=== PATIENT | female | born 1950 | race Caucasian/White ===

== ENCOUNTER 2016-06-09 00:16 | Emergency (ER) ==
[2016-06-09] MEDS ORDERED: TRANDATE IVP STA (00:26)
[2016-06-09] MEDS ORDERED: CATAPRES PO STA (00:26)
[2016-06-09 00:29] VITALS: BP 222/120; TEMP 97.6; BMI 27.3
[2016-06-09] MEDS ORDERED: NORVASC PO STA (00:30)
[2016-06-09 00:48] LABS: BASOPHILS # (AUTO) 0.1 K/uL (0-0.2); BASOPHILS % (AUTO) 0.8 % (0.0-3.0); EOSINOPHILS # (AUTO) 0.2 K/ul (0.0-0.7); EOSINOPHILS % (AUTO) 2.4 % (0.0-7.0); HEMATOCRIT 39.5 % (37.0-47.0); HEMOGLOBIN 12.6 g/dl (12.0-16.0); IMMATURE GRANULOCYTE % (AUTO) 0.3 % (0.0-5.0); LYMPHOCYTES # (AUTO) 3.1 K/uL (0.60-3.4); LYMPHOCYTES % (AUTO) 39.1 (10.0-50.0); MEAN CORPUSCULAR HEMOGLOBIN 25.8 pg (27.0-31.0); MEAN CORPUSCULAR HGB CONC 31.9 (31.8-35.4); MEAN CORPUSCULAR VOLUME 80.8 fl (81.0-99.0); MONOCYTES # (AUTO) 0.7 K/uL (0.4-2.0); MONOCYTES % (AUTO) 8.4 (0-10); NEUTROPHILS # (AUTO) 3.8 K/ul (2.0-6.9); PLATELET COUNT 282 10^3/uL (140-440); RED BLOOD COUNT 4.89 10^6/ul (4.20-5.40); WHITE BLOOD COUNT 7.83 K/ul (4.6-10.2)
--- NOTE | 2016-06-09 01:27 | CT ---
EXAM: CT brain without contrast HISTORY: Hypertension and refractory headache TECHNIQUE: CT of the brain without intravenous contrast FINDINGS: There is no acute hemorrhage midline shift or mass effect. No hydrocephalus or abnormal extra-axial fluid collection. Generalized involutional atrophy, mild. Chronic microvascular change s of the white matter tracts, severe. No acute large vessel territorial infarct is seen. The bony cranium appears normal. The visualized paranasal sinuses are clear. Soft tissues without significant abnormality. IMPRESSION: 1. No acute intracranial abnormality. 2. Bilateral symmetric white matter hypodensities most commonly representing chronic microvascular ischemic disease.
[2016-06-09 01:43] LABS: ALANINE AMINOTRANSFERASE 26 U/L (12-78); ALBUMIN 4.3 g/dL (3.4-5.0); ALKALINE PHOSPHATASE 90 U/L (53-141); ANION GAP 13.7; ASPARTATE AMINO TRANSFERASE 25 U/L (15-37); BILIRUBIN,TOTAL 0.34 mg/dL (0.00-1.20); BLOOD UREA NITROGEN 7 mg/dL (7-18); BUN/CREATININE RATIO 9.33; CALCIUM 9.6 mg/dL (8.2-10.2); CARBON DIOXIDE 31 mmol/L (23-31); CHLORIDE 103 mmol/L (98-107); CREATINE KINASE 225 U/L; CREATININE 0.75 mg/dL (0.60-1.30); GLUCOSE 91 mg/dL (82-115); POTASSIUM 3.7 mmol/L (3.5-5.10); SODIUM 144 mmol/L (136-145); TOTAL PROTEIN 8.2 g/dL (5.8-8.1)
--- NOTE | 2016-06-09 02:40 | ED.PDOC ---
General ED Provider: Dr. VERO RUELAS-ER Chief Complaint: Hypertension Stated Complaint: my bp is up--miguel been worried about my friend dying in the senior living Time Seen by Physician: 00:20 Mode of Arrival: Walk-In Information Source: Patient Exam Limitations: No limitations Primary Care Provider: VERO RUELAS Nursing and Triage Documentation Reviewed and Agree: Yes Cardiovascular Complaint Exam - Hypertension Complaint/Exam Onset/Duration: several hours Symptoms Are: Still present Timing: Constant Aggravating: Reports: None Alleviating: Reports: None Associated Signs and Symptoms: Reports: Headache. Denies: Chest pain, Vision changes, Anxiety, Recent stress, Numbness, Tingling, Weakness, Dizziness, Short of air, Swelling Related Surgical History: Reports: None Cardiac Risk Factors: Reports: Hypertension Recent Change in Medications: No A/V Nicking: No Papilledema Present: No JVD Present: No Carotid Bruit Present: No Femoral Pulses Bounding: No Differential Diagnoses: Hypertension Quality Indicator For Non-Traumatic Chest Pain/Syncope: EKG Performed Review of Systems - Review Of Systems Constitutional: Reports: No symptoms Eyes: Reports: No symptoms Ears, Nose, Mouth, Throat: Reports: No symptoms Respiratory: Reports: No symptoms Cardiac: Reports: No symptoms GI: Reports: No symptoms : Reports: No symptoms Musculoskeletal: Reports: No symptoms Skin: Reports: No symptoms Neurological: Reports: No symptoms Endocrine: Reports: No symptoms Hematologic/Lymphatic: Reports: No symptoms All Other Systems: Reviewed and Negative Past Medical History - Past Medical History Endocrine: Reports: Unknown Cardiovascular: Reports: Hypertension Respiratory: Reports: Unknown Hematological: Reports: Unknown Gastrointestinal: Reports: Unknown Genitourinary: Reports: Unknown Neuro/Psych: Reports: Unknown Musculoskeletal: Reports: Unknown Cancer: Reports: Unknown Last Menstrual Period: 1999 - Surgical History General Surgical History: Reports: Unknown - Family History Family History: Reports: Unknown - Social History Smoking Status: Never smoker Hx Substance Use: No Alcohol Screening: None - Immunizations Tetanus Shot up to Date: Yes Physical Exam - Physical Exam Appearance: Well-appearing Eyes: GINNY, EOMI, Conjunctiva clear ENT: Ears normal, Nose normal, Oropharynx normal Neck: Supple Respiratory: Airway patent, Breath sounds clear, Breath sounds equal, Respirations nonlabored Cardiovascular: RRR, Pulses normal, No rub, No murmur GI/: Soft, Nontender, No masses, Bowel sounds normal, No Organomegaly Musculoskeletal: Normal strength Skin: Warm, Dry, Normal color Neurological: Sensation intact, Motor intact, Reflexes intact, Cranial nerves intact, Alert, Oriented Psychiatric: Affect appropriate, Mood appropriate Interpretation - Radiology Interpretation Radiology Interpretation By: Radiologist Radiology Results: Negative Exam Interpreted: CT Scan Re-Evaluation - Re-Evaluation Time of Re-Evaluation: 02:40 Status: Improved Vital Signs Stable: Yes (bp 130/80) Appearance: NAD Lungs: Clear Skin: Warm and Dry Neuro: Alert and Oriented X3 CV: RRR Critical Care Note - Critical Care Note Total Time (mins): 0 Course - Course Hematology/Chemistry: 06/09/16 00:35 06/09/16 00:35 Orders, Labs, Meds: Lab Review 06/09/16 00:35 WBC 7.83 RBC 4.89 Hgb 12.6 Hct 39.5 MCV 80.8 L MCH 25.8 L MCHC 31.9 RDW Coeff of Shilpa 14.9 H Plt Count 282 Immature Gran % (Auto) 0.3 Neut % (Auto) 49.0 Lymph % (Auto) 39.1 Terry % (Auto) 8.4 Eos % (Auto) 2.4 Baso % (Auto) 0.8 Immature Gran # (Auto) 0.0 Neut # 3.8 Lymph # 3.1 Terry # 0.7 Eos # 0.2 Baso # 0.1 Sodium 144 Potassium 3.7 Chloride 103 Carbon Dioxide 31 Anion Gap 13.7 BUN 7 Creatinine 0.75 Estimated GFR (MDRD) 78.00 BUN/Creatinine Ratio 9.33 Glucose 91 Calcium 9.6 Total Bilirubin 0.34 AST 25 ALT 26 Alkaline Phosphatase 90 Total Creatine Kinase 225 CK-MB (CK-2) 3.0 CK-MB (CK-2) % 1.38138 Troponin I < 0.0100 Total Protein 8.2 H Albumin 4.3 Globulin 3.9 Albumin/Globulin Ratio 1.10 TSH 4.955 H Free T4 1.01 Orders Category Date Time Status EKG-(ED ONLY) Stat CARDIO 06/09/16 00:24 Completed Digital Business Analyst [ED DAY CARE HOME PROVIDER APPLIED] .ONCE EMERGENCY 06/09/16 00:25 Active IV [ED IV/MEDIPORT/POWERPORT] .ONCE EMERGENCY 06/09/16 00:25 Active CBC W/ AUTO DIFF Stat LAB 06/09/16 00:35 Completed COMPREHENSIVE METABOLIC PANEL Stat LAB 06/09/16 00:35 Completed CREATINE KINASE Stat LAB 06/09/16 00:35 Completed FREE T4 (FREE THYROXINE) Stat LAB 06/09/16 00:35 Completed THYROID STIMULATING HORMONE Stat LAB 06/09/16 00:35 Completed TROPONIN I Stat LAB 06/09/16 00:35 Completed URINALYSIS C & S IF INDICATED Stat LAB 06/09/16 00:27 Uncollected 0.9 % Sodium Chloride [Saline Flush] MEDS 06/09/16 00:25 Ordered 1 syr IVF PRN PRN Amlodipine Besylate [Norvasc] MEDS 06/09/16 00:30 Discontinued 5 mg PO ONCE STA Clonidine HCl [Catapres] MEDS 06/09/16 00:26 Discontinued 0.1 mg PO ONCE STA Labetalol HCl [Trandate] MEDS 06/09/16 00:26 Discontinued [address] ON[address] HEAD W/O CONTRAST Stat RADS 06/09/16 00:25 Completed Medications Generic Name Dose Route Start Last Admin Trade Name Freq PRN Reason Stop Dose Admin Sodium Chloride 1 syr 06/09/16 00:25 Saline Flush IVF PRN PRN To flush IV Discontinued Medications Generic Name Dose Route Start Last Admin Trade Name Freq PRN Reason Stop Dose Admin Amlodipine Besylate 5 mg 06/09/16 00:30 06/09/16 00:51 Norvasc PO 06/09/16 00:31 5 mg ONCE STA Administration Clonidine 0.1 mg 06/09/16 00:26 06/09/16 00:51 Catapres PO 06/09/16 00:27 0.1 mg ONCE STA Administration Labetalol HCl 20 mg 06/09/16 00:26 06/09/16 00:51 Trandate IVP 06/09/16 00:27 20 mg ONCE STA Administration Vital Signs: Temp Pulse Resp BP Pulse Ox 06/09/16 00:18 97.6 F 68 20 222/120 H 96 LOURDES Risk Score LOURDES Risk Score: Risk Score Odds of by 30D 0 0.1 (0.1-0.2) 1 0.3 (0.2-0.3) 2 0.4 (0.3-0.5) 3 0.7 (0.6-0.9) 4 1.2 (1.0-1.5) 5 2.2 (1.9-2.6) 6 3.0 (2.5-3.6) 7 4.8 (3.8-6.1) Departure - Departure Time of Disposition: 02:40 Disposition: HOME SELF-CARE Discharge Problem: Hypertension Qualifiers: Hypertension type: essential hypertension Qualifier Code: (I10) Essential ( primary) hypertension Instructions: Chronic Hypertension (ED) Condition: Good Pt referred to PMD for follow-up: Yes Additional Instructions: continue home meds--come by office tomorrow afternoon for bp check Allergies/Adverse Reactions: Allergies codeine Adverse Reaction (Verified 06/09/16 00:27) Vomiting Home Medications: Ambulatory Orders Ascorbate Calcium [Vitamin C] 500 mg PO DAILY 06/09/16 Aspirin [Aspirin EC] 81 mg PO DAILYWM 06/09/16 Bumetanide 0.5 mg PO DAILY 06/09/16 Enalapril Maleate 20 mg PO BID 06/09/16 Estradiol 1 mg PO DAILY 06/09/16 Levothyroxine Sodium [Synthroid] 25 mcg PO QDAC 06/09/16 Nebivolol HCl [Bystolic] 10 mg PO DAILY 06/09/16 Omeprazole Magnesium [Prilosec Otc] 20 mg PO DAILY 06/09/16 Vit A/C/E AC/Znox/Cupric Oxide [Eye Vitamin-Minerals Tablet] 1 tab PO DAILY Disposition Discussed With: Patient
== END 2016-06-09 02:50 | disposition home or self-care (01) ==
LOC: ED 00:16
DX: I10 Essential (primary) hypertension (principal); R51 Headache; Z79.899 Other long term (current) drug therapy
CPT/HCPCS: 36415; 80053; 82550; 82553; 84439; 84443; 84484; 85025; 93005; 93010; 99284; 99285

== ENCOUNTER 2016-08-04 14:04 | Outpatient (CLI) ==
--- NOTE | 2016-08-04 14:50 | DI ---
EXAM: Lumbar spine five views HISTORY: Chronic low back pain COMPARISON: None TECHNIQUE: Five views lumbar spine were performed FINDINGS: Sacroiliac joints intact. Sacral arcuate lines intact. Vertebral bodies normal height. No fracture. No subluxation. Multilevel marginal osteophyte formation. Mild multilevel intervert ebral disc space narrowing. Minimal leftward curvature lumbar spine. There is facet arthrosis in t he lower spine. Atherosclerotic vascular calcification. IMPRESSION: Chronic discogenic degenerative disease and facet arthrosis.
== END 2016-08-04 14:05 | disposition home or self-care (01) ==
LOC: RAD 14:04
PROVIDERS: ATTEND Family Medicine
DX: M54.5 Low back pain (principal); G89.29 Other chronic pain

== ENCOUNTER 2016-08-28 11:26 | Outpatient (CLI) ==
--- NOTE | 2016-08-28 12:17 | DI ---
EXAM: CHEST FRONTAL AND LATERAL VIEWS HISTORY: Cough and fever. COMPARISON: None FINDINGS: Heart size and mediastinal contour within normal limits. No acute infiltrates. Meghan l vascularity with no pleural fluid or pneumothorax. The bony thorax has no acute finding. IMPRESSION: No acute process.
== END 2016-08-28 11:27 | disposition home or self-care (01) ==
LOC: RAD 11:26
PROVIDERS: ATTEND Family Medicine
DX: J40 Bronchitis, not specified as acute or chronic (principal)

== ENCOUNTER 2017-07-13 11:07 | Outpatient (CLI) ==
--- NOTE | 2017-07-13 12:29 | DI ---
EXAM: CHEST FRONTAL AND LATERAL VIEWS HISTORY: Bronchitis/hemoptysis. COMPARISON: 08/28/2016 FINDINGS: Heart size is within normal limits. Mild ectasia of the thoracic aorta. Lungs are mildly hyperinflated. No consolidated pneumonia or atelectasis is identified. There is no vascular conges tion, pleural fluid or pneumothorax. IMPRESSION: No definite pneumonia identified. CT thorax could be considered if indicated clinically.
== END 2017-07-13 11:08 | disposition home or self-care (01) ==
LOC: RAD 11:07
PROVIDERS: ATTEND Family Medicine
DX: J40 Bronchitis, not specified as acute or chronic (principal)

== ENCOUNTER 2018-07-19 06:50 | Day surgery (SDC) | payer OTHER ==
[2018-07-19] MEDS ORDERED: LIDOCAINE 1% 20 ML MDV ID ONE (07:05)
[2018-07-19 07:14] VITALS: TEMP 97.9
[2018-07-19] MEDS ORDERED: DIPRIVAN 20 ML VIAL IVP ONE (07:40)
[2018-07-19] MEDS ORDERED: VERSED ONE (07:40)
[2018-07-19 10:45] VITALS: BP 121/56
--- NOTE | 2018-07-20 09:57 | OP ---
PROCEDURE: COLONOSCOPY TO THE CECUM WITH COLD SNARE POLYPECTOMY. ENDOSCOPIST: Noreen DOWNS M.D. INDICATION: ANEMIA. INSTRUMENT: [facility][id number]. MEDICATION: PER ANESTHESIA. PROCEDURE: The patient was positioned for colonoscopy. The digital rectal exam was negative. The colonoscope was inserted through the anus and advanced to the cecum. The cecum was identified using the ileocecal valve and the appendiceal orifice as landmarks. The [place] Bowel Prep Score = 9. A small polyp in the cecal pit removed using cold snare polypectomy. The remaining colon is notable for diverticulosis. Hemorrhoids are seen on retroflex exam. No other abnormalities are noted. Specifically, no evidence for the source of blood loss. She tolerated the procedure without immediate complication. Withdrawal time 14 minutes, 55 seconds. PLAN: 1. Review pathology with repeat colonoscopy in five years. 2. Will see her back as scheduled for endoscopy. CC: DR. JESSENIA NELSON
== END 2018-07-19 09:00 | disposition home or self-care (01) ==
LOC: SURG 06:50
PROVIDERS: ATTEND Internal Medicine Gastroenterology
DX: D64.9 Anemia, unspecified (principal); D12.0 Benign neoplasm of cecum